=== PATIENT | female | born 1970 | race Caucasian/White ===

== ENCOUNTER 2016-07-30 05:32 | Observation (INO) | payer OTHER ==
[~2016-07-30] VITALS: Ht 167.6 cm; Wt 86.2 kg
[2016-07-30] MEDS ORDERED: CHLORHEXIDINE GLUCONATE 2 % 1 PACK (2 CLOTHS) TOPICAL PRN (06:00)
[2016-07-30] MEDS ORDERED: INSULIN HUMAN REGULAR 1,000 UNITS/10 ML VIAL SQ PRN (06:00)
[2016-07-30] MEDS ORDERED: LACTATED RINGER'S 1000 ML IV PRN (06:00)
[2016-07-30] MEDS ORDERED: SODIUM CHLORID 0.9% 500 ML IV PRN (06:00)
[2016-07-30] MEDS ORDERED: METOPROLOL TARTRATE 25 MG TAB PO PRN (06:00)
[2016-07-30] MEDS ORDERED: POVIDONE IODINE 5% (ANTISEPSIS KIT) 4 APPLICATIONS EACH NARE PRN (06:00)
[2016-07-30] MEDS ORDERED: SODIUM CHLORIDE FLUSH PRN IV FLUSH (06:15)
[2016-07-30] MEDS ORDERED: HEPARIN SODIUM - SQ 10,000 UNITS/ML VIAL SQ SCH (06:15)
[2016-07-30] MEDS ORDERED: ceFAZolin 2 GM PREMIX 50 ML IV SCH (06:15)
[2016-07-30] MEDS ORDERED: GABA300C5 PO (06:16)
[2016-07-30] MEDS ORDERED: TRAZ50TA12 PO (06:16)
[2016-07-30] MEDS ORDERED: SITA1TAB2 PO (06:16)
[2016-07-30] MEDS ORDERED: PANT20TA2 PO (06:16)
[2016-07-30] MEDS ORDERED: METF1000 PO (06:16)
[2016-07-30] MEDS ORDERED: ALDA100T PO (06:16)
[2016-07-30] MEDS ORDERED: LEVO150T7 PO (06:16)
[2016-07-30] MEDS ORDERED: METO50TA PO (06:16)
[2016-07-30] MEDS ORDERED: XANA1TAB2 PO (06:16)
[2016-07-30] MEDS ORDERED: ATOR20TA15 PO (06:16)
[2016-07-30 06:17] VITALS: BP 112/65; PULSE 77; RESP 20; TEMP 98.6; O2SAT 95
[2016-07-30 06:59] LABS: AUTOMATED NEUTROPHIL # 8.5 TH/MM3 (1.8-7.7); BASOPHIL # 0.2 TH/MM3 (0-0.2); BASOPHIL % 1.2 % (0.0-2.0); EOSINOPHIL # 0.4 TH/MM3 (0-0.4); EOSINOPHIL % 2.9 % (0.0-4.0); HEMATOCRIT 39.8 % (35.0-46.0); HEMO FLAGS DIFF FINAL; LYMPH % 25.5 % (9.0-44.0); LYMPHOCYTE # 3.3 TH/MM3 (1.0-4.8); MEAN CELL VOLUME 87.1 FL (80.0-100.0); MEAN CORPUSCULAR HEMOGLOBIN 28.7 PG (27.0-34.0); MEAN CORPUSCULAR HGB CONC 32.9 % (32.0-36.0); MONO % 5.5 % (0.0-8.0); NEUT % 64.9 % (16.0-70.0); PLATELET COUNT 302 TH/MM3 (150-450); RED BLOOD COUNT 4.56 MIL/MM3 (4.00-5.30); RED CELL DISTRIBUTION WIDTH 13.4 % (11.6-17.2); WHITE BLOOD COUNT 13.1 TH/MM3 (4.0-11.0)
[2016-07-30 07:13] LABS: APTT (PATIENT) 29.2 SEC (24.3-30.1); PROTHROMBIN TIME - PATIENT 11.5 SEC (9.8-11.6)
[2016-07-30] MEDS ORDERED: MIDAZOLAM HCL 2 MG/2 ML VIAL ONE (07:13)
[2016-07-30] MEDS ORDERED: SUGAMMADEX SODIUM 200 MG/2 ML VIAL IV PUSH ONE ×2 (07:14)
[2016-07-30] MEDS ORDERED: ACETAMINOPHEN 1000 MG/100 ML VIAL IV ONE (07:14)
[2016-07-30] MEDS ORDERED: fentaNYL CITRATE 250 MCG/5 ML AMP ONE ×2 (07:14→10:41)
[2016-07-30 07:24] LABS: ALT (GPT) 27 U/L (10-53); ANION GAP 9 MEQ/L (5-15); AST (GOT) 17 U/L (15-37); BICARBONATE 26.3 MEQ/L (21.0-32.0); BLOOD UREA NITROGEN 5 MG/DL (7-18); CHLORIDE 105 MEQ/L (98-107); GLOMERULAR FILTRATION RATE 69 ML/MIN (>89); POTASSIUM 3.5 MEQ/L (3.5-5.1); SODIUM (NA) 140 MEQ/L (136-145)
[2016-07-30 07:28] LABS: ALKALINE PHOSPHATASE 86 U/L (45-117); BETA HCG QUANT LESS THAN 1 MIU/ML (0-5); TOTAL BILIRUBIN ADULT 0.3 MG/DL (0.2-1.0)
[2016-07-30] MEDS ORDERED: LIDOCAINE 1%/EPINEPHrine 1:100,000 SOLN 20 ML VIAL INFIL ONE (08:42)
[2016-07-30] MEDS ORDERED: SODIUM CHLORIDE FLUSH BID IV FLUSH SCH (09:00)
[2016-07-30] MEDS ORDERED: METHYLENE BLUE 10 MG/ML VIAL OTHER ONE (09:11)
[2016-07-30] MEDS ORDERED: DO NOT ADM ANY ANTICOAGULANT DRUGS PRN (10:00)
[2016-07-30] MEDS ORDERED: SODIUM CHLORIDE 0.9% FLUSH 10 ML FLUSH IV FLUSH PRN (10:30)
[2016-07-30] MEDS ORDERED: ONDANSETRON HCL 4 MG/2 ML VIAL IVP PRN (10:30)
[2016-07-30] MEDS ORDERED: diphenhydrAMINE HCL 25 MG CAP PO PRN (10:30)
[2016-07-30] MEDS ORDERED: oxyCODONE/ACETAMINOPHEN 5 MG/325 MG TAB PO PRN (10:30)
[2016-07-30] MEDS: D5-1/2 NS + KCL 20 MEQ INJ 1,000 ML IV SCH ×2 (11:24→21:05)
[2016-07-30] MEDS: KETOROLAC TROMETHAMINE 30 MG/ML (IVP) VIAL IVP SCH ×3 (11:41→22:08)
[2016-07-30 12:00] VITALS: BP 151/78; PULSE 83; RESP 20; TEMP 96.5; O2SAT 94
[2016-07-30] MEDS ORDERED: ONDANSETRON HCL 4 MG/2 ML VIAL IV PUSH ONE (12:00)
[2016-07-30] MEDS ORDERED: NORMOSOL R INJ 1,000 ML IV ONE (12:00)
[2016-07-30] MEDS ORDERED: PROPOFOL 200 MG/20 ML AMP IV ONE (12:00)
[2016-07-30] MEDS: oxyCODONE/ACETAMINOPHEN 5 MG/325 MG TAB PO PRN ×2 (12:34→17:20)
[2016-07-30] MEDS ORDERED: GLUCAGON 1 MG/ML VIAL OTHER PRN (12:45)
[2016-07-30] MEDS ORDERED: DEXTROSE 50% IN WATER 50 ML VIAL(D50) IV PUSH PRN (12:45)
[2016-07-30 16:00] VITALS: BP 143/82; PULSE 82; RESP 18; TEMP 96.4; O2SAT 97
[2016-07-30] MEDS: INSULIN NovoLIN REGULAR SUPPLEMENTAL SCALE SQ SCH ×2 (16:00→22:16)
--- NOTE | 2016-07-30 17:05 | PD.ONC.PN ---
Subjective Subjective Remarks post op note pt has no complaints has been OOB to bedside commode pain controlled denies any n/v Objective Data Date Time Temp Pulse Resp B/P Pulse Ox O2 Delivery O2 Flow Rate FiO2 07/30/16 16:00 96.4 82 18 143/82 97 07/30/16 12:00 96.5 83 20 151/78 94 07/30/16 12:00 97.8 88 16 140/74 95 Nasal Cannula 3 07/30/16 11:45 89 16 130/71 95 07/30/16 11:30 88 15 152/70 95 07/30/16 11:15 96 12 172/80 98 07/30/16 11:00 96 12 170/84 96 07/30/16 10:45 90 12 147/63 91 07/30/16 10:30 97.8 98 12 150/70 89 Simple Mask 6 07/30/16 06:17 98.6 77 20 112/65 95 07/30/16 07/30/16 07/30/16 07:00 15:00 23:00 Intake Total 270 ml Output Total 700 ml Balance -700 ml 270 ml Result Diagram: 07/30/1625 07/30/1625 Laboratory Results Laboratory Tests Test 07/30/16 06:25 White Blood Count 13.1 TH/MM3 Red Blood Count 4.56 MIL/MM3 Hemoglobin 13.1 GM/DL Hematocrit 39.8 % Mean Corpuscular Volume 87.1 FL Mean Corpuscular Hemoglobin 28.7 PG Mean Corpuscular Hemoglobin 32.9 % Concent Red Cell Distribution Width 13.4 % Platelet Count 302 TH/MM3 Mean Platelet Volume 8.8 FL Neutrophils (%) (Auto) 64.9 % Lymphocytes (%) (Auto) 25.5 % Monocytes (%) (Auto) 5.5 % Eosinophils (%) (Auto) 2.9 % Basophils (%) (Auto) 1.2 % Neutrophils # (Auto) 8.5 TH/MM3 Lymphocytes # (Auto) 3.3 TH/MM3 Monocytes # (Auto) 0.7 TH/MM3 Eosinophils # (Auto) 0.4 TH/MM3 Basophils # (Auto) 0.2 TH/MM3 CBC Comment DIFF FINAL Differential Comment Prothrombin Time 11.5 SEC Prothromb Time International 1.0 RATIO Ratio Activated Partial 29.2 SEC Thromboplast Time Sodium Level 140 MEQ/L Potassium Level 3.5 MEQ/L Chloride Level 105 MEQ/L Carbon Dioxide Level 26.3 MEQ/L Anion Gap 9 MEQ/L Blood Urea Nitrogen 5 MG/DL Creatinine 0.89 MG/DL Estimat Glomerular Filtration 69 ML/MIN Rate Random Glucose 148 MG/DL Calcium Level 9.1 MG/DL Total Bilirubin 0.3 MG/DL Aspartate Amino Transf 17 U/L (AST/SGOT) Alanine Aminotransferase 27 U/L (ALT/SGPT) Alkaline Phosphatase 86 U/L Total Protein 7.3 GM/DL Albumin 3.4 GM/DL Human Chorionic Gonadotropin, LESS THAN 1 Quant MIU/ML Blood Type O POSITIVE Antibody Screen NEGATIVE Blood Bank Comment Administered Medications Medications (Trade) Dose Ordered Sig/Sharron Route PRN Reason Start Time Stop Time Status Last Admin Dose Admin Potassium Chloride/Dextrose/ Sod Cl (D5-1/2 NS + KCl 20 Meq Inj) 1,000 ml @ 100 mls/hr Q10H IV 07/30/16 10:19 07/30/16 11:24 Ketorolac Tromethamine (Toradol Inj) 30 mg Q6H IVP 07/30/16 12:00 07/31/16 06:01 07/30/16 11:41 Oxycodone/ Acetaminophen (Percocet 5-325 Mg) 2 tab Q4H PRN PO PAIN SCALE 6 TO 10 07/30/16 10:30 07/30/16 12:34 Ondansetron HCl (Zofran Inj) 4 mg Q6H PRN IVP NAUSEA OR VOMITING 07/30/16 10:30 07/30/16 12:35 Objective Remarks GENERAL: Well-nourished, well-developed patient. SKIN: Warm and dry. HEAD: Normocephalic. EYES: No scleral icterus. No injection or drainage. CARDIOVASCULAR: Regular rate and rhythm without murmurs. RESPIRATORY: Breath sounds equal bilaterally. No accessory muscle use. GASTROINTESTINAL: Abdomen soft, SS are c/d/i EXTREMITIES: No cyanosis, or edema. MUSCULOSKELETAL: Adequate muscle tone. NEUROLOGICAL: No obvious focal deficit. Awake, alert, and oriented x3. PSYCHIATRIC: Appropriate mood and affect; insight and judgment normal. Assessment/Plan Problem List: (1) Post-operative state Status: Acute Plan: pt RA lap hyst with BSO and resection of pelvic mass post op orders in chart OOB to chair ADAT IS at bedside [facility] D/C in the morning and anticipate discharge in next 24 hours Asia Arzola Jul 30, 2016 17:05
[2016-07-30] MEDS: SPIRONOLACTONE 100 MG TAB PO SCH (18:00)
[2016-07-30 20:20] VITALS: BP 105/62; PULSE 77; RESP 16; TEMP 97.5; O2SAT 95
[2016-07-30] MEDS ORDERED: traZODone HCL 100 MG TAB PO SCH (21:00)
[2016-07-30] MEDS ORDERED: ATORVASTATIN 20 MG TAB PO SCH (21:00)
[2016-07-30] MEDS: SODIUM CHLORIDE 0.9% FLUSH 10 ML FLUSH IV FLUSH SCH (21:00)
[2016-07-30] MEDS: GABAPENTIN 300 MG CAP PO SCH (21:04)
[2016-07-30] MEDS: ALPRAZolam 1 MG TAB PO SCH (21:09)
[2016-07-31] VITALS: BP 96/54; PULSE 75; RESP 16; TEMP 97.8; O2SAT 94
[2016-07-31] MEDS: oxyCODONE/ACETAMINOPHEN 5 MG/325 MG TAB PO PRN ×2 (03:41→09:25)
[2016-07-31 04:00] VITALS: BP 116/64; PULSE 66; RESP 16; TEMP 96.9; O2SAT 95
[2016-07-31] MEDS ORDERED: LEVOTHYROXINE SODIUM 150 MCG TAB PO SCH (06:00)
[2016-07-31] MEDS: KETOROLAC TROMETHAMINE 30 MG/ML (IVP) VIAL IVP SCH (06:05)
[2016-07-31] MEDS: D5-1/2 NS + KCL 20 MEQ INJ 1,000 ML IV SCH (06:05)
[2016-07-31] MEDS: INSULIN NovoLIN REGULAR SUPPLEMENTAL SCALE SQ SCH ×2 (06:39→12:12)
[2016-07-31 07:11] LABS: AUTOMATED NEUTROPHIL # 16.7 TH/MM3 (1.8-7.7); BASOPHIL # 0.1 TH/MM3 (0-0.2); BASOPHIL % 0.3 % (0.0-2.0); EOSINOPHIL # 0.1 TH/MM3 (0-0.4); EOSINOPHIL % 0.4 % (0.0-4.0); HEMATOCRIT 40.8 % (35.0-46.0); HEMO FLAGS DIFF FINAL; LYMPH % 16.8 % (9.0-44.0); LYMPHOCYTE # 3.6 TH/MM3 (1.0-4.8); MEAN CELL VOLUME 87.9 FL (80.0-100.0); MEAN CORPUSCULAR HEMOGLOBIN 28.3 PG (27.0-34.0); MEAN CORPUSCULAR HGB CONC 32.2 % (32.0-36.0); MONO % 4.5 % (0.0-8.0); PLATELET COUNT 310 TH/MM3 (150-450); RED BLOOD COUNT 4.64 MIL/MM3 (4.00-5.30); RED CELL DISTRIBUTION WIDTH 13.2 % (11.6-17.2); WHITE BLOOD COUNT 21.4 TH/MM3 (4.0-11.0)
[2016-07-31] MEDS ORDERED: ULTR50TA5 PO (07:40)
[2016-07-31] MEDS ORDERED: ESTR.9 PO (07:42)
[2016-07-31 07:44] LABS: BICARBONATE 28.8 MEQ/L (21.0-32.0); POTASSIUM 4.3 MEQ/L (3.5-5.1)
--- NOTE | 2016-07-31 07:47 | PD.ONC.PN ---
Subjective Subjective Remarks POD #1 pt is resting in bed states that her pain in controlled Carey has been removed and she has not been up to urinate will advance to regular diet Objective Data Date Time Temp Pulse Resp B/P Pulse Ox O2 Delivery O2 Flow Rate FiO2 07/31/16 04:00 96.9 66 16 116/64 95 07/31/16 00:00 97.8 75 16 96/54 94 07/30/16 20:20 97.5 77 16 105/62 95 07/30/16 16:00 96.4 82 18 143/82 97 07/30/16 12:00 96.5 83 20 151/78 94 07/30/16 12:00 97.8 88 16 140/74 95 Nasal Cannula 3 07/30/16 11:45 89 16 130/71 95 07/30/16 11:30 88 15 152/70 95 07/30/16 11:15 96 12 172/80 98 07/30/16 11:00 96 12 170/84 96 07/30/16 10:45 90 12 147/63 91 07/30/16 10:30 97.8 98 12 150/70 89 Simple Mask 6 07/31/16 07/31/16 07/31/16 07:00 15:00 23:00 Intake Total 1200 ml Balance 1200 ml Result Diagram: 07/31/16 0645 07/30/16 0625 Laboratory Results Laboratory Tests Test 07/31/16 06:45 White Blood Count 21.4 TH/MM3 Red Blood Count 4.64 MIL/MM3 Hemoglobin 13.1 GM/DL Hematocrit 40.8 % Mean Corpuscular Volume 87.9 FL Mean Corpuscular Hemoglobin 28.3 PG Mean Corpuscular Hemoglobin 32.2 % Concent Red Cell Distribution Width 13.2 % Platelet Count 310 TH/MM3 Mean Platelet Volume 8.3 FL Neutrophils (%) (Auto) 78.0 % Lymphocytes (%) (Auto) 16.8 % Monocytes (%) (Auto) 4.5 % Eosinophils (%) (Auto) 0.4 % Basophils (%) (Auto) 0.3 % Neutrophils # (Auto) 16.7 TH/MM3 Lymphocytes # (Auto) 3.6 TH/MM3 Monocytes # (Auto) 1.0 TH/MM3 Eosinophils # (Auto) 0.1 TH/MM3 Basophils # (Auto) 0.1 TH/MM3 CBC Comment DIFF FINAL Differential Comment Administered Medications Medications (Trade) Dose Ordered Sig/Sharron Route PRN Reason Start Time Stop Time Status Last Admin Dose Admin Alprazolam (Xanax) 1 mg BID PO 07/30/16 21:00 07/30/16 21:09 Atorvastatin Calcium (Lipitor) 20 mg HS PO 07/30/16 21:00 07/30/16 21:04 Gabapentin (Neurontin) 300 mg BID PO 07/30/16 21:00 07/30/16 21:04 Levothyroxine Sodium (Synthroid) 150 mcg DAILY@0600 PO 07/31/16 06:00 07/31/16 06:05 Trazodone HCl 100 mg 100 mg HS PO 07/30/16 21:00 07/30/16 21:05 Potassium Chloride/Dextrose/ Sod Cl (D5-1/2 NS + KCl 20 Meq Inj) 1,000 ml @ 100 mls/hr Q10H IV 07/30/16 10:19 07/31/16 06:05 Oxycodone/ Acetaminophen (Percocet 5-325 Mg) 1 tab Q4H PRN PO PAIN SCALE 1 TO 5 07/30/16 10:30 07/30/16 21:04 Oxycodone/ Acetaminophen (Percocet 5-325 Mg) 2 tab Q4H PRN PO PAIN SCALE 6 TO 10 07/30/16 10:30 07/31/16 03:41 Ondansetron HCl (Zofran Inj) 4 mg Q6H PRN IVP NAUSEA OR VOMITING 07/30/16 10:30 07/30/16 12:35 Objective Remarks GENERAL: Well-nourished, well-developed patient. SKIN: Warm and dry. HEAD: Normocephalic. EYES: No scleral icterus. No injection or drainage. CARDIOVASCULAR: Regular rate and rhythm without murmurs. RESPIRATORY: Breath sounds equal bilaterally. No accessory muscle use. GASTROINTESTINAL: Abdomen soft, SS are c/d/i EXTREMITIES: No cyanosis, or edema. MUSCULOSKELETAL: Adequate muscle tone. NEUROLOGICAL: No obvious focal deficit. Awake, alert, and oriented x3. PSYCHIATRIC: Appropriate mood and affect; insight and judgment normal. Assessment/Plan Problem List: (1) Post-operative state Status: Acute Plan: POD #1 RA lap hyst with BSO and resection of pelvic mass OK to D/C home today after first void will advance to regular diet will call in script for Premarin 0.9% 1 tab daily Ultram 50mg 1 tab PO q 4 hours PRN pain educated pt about restrictions OK to resume home meds Pt will follow up in customer service operator/onc clinic in 2-3 weeks for final pathology Attending Statement Dr. Mc is in agreement with this plan of care. Asia Arzola Jul 31, 2016 07:47
[2016-07-31 08:11] VITALS: BP 105/65; PULSE 79; RESP 20; TEMP 98; O2SAT 92
[2016-07-31] MEDS ORDERED: METOPROLOL TARTRATE 50 MG TAB PO SCH (09:00)
[2016-07-31] MEDS ORDERED: PANTOPRAZOLE SOD 20 MG DELAYED RELEASE TAB PO SCH (09:00)
[2016-07-31] MEDS: GABAPENTIN 300 MG CAP PO SCH (09:07)
[2016-07-31] MEDS: ALPRAZolam 1 MG TAB PO SCH (09:07)
[2016-07-31] MEDS: SPIRONOLACTONE 100 MG TAB PO SCH (09:07)
[2016-07-31] MEDS: SODIUM CHLORIDE 0.9% FLUSH 10 ML FLUSH IV FLUSH SCH (09:08)
[2016-07-31 12:43] VITALS: BP 108/63; PULSE 62; RESP 20; TEMP 96.9; O2SAT 97
[2016-07-31 13:30] VITALS: BP 109/71; PULSE 82; RESP 16; TEMP 98.5; O2SAT 100
--- NOTE | 2016-08-01 07:45 | MP ---
cc: GEORGIE ZULETA KELLY L. MD CARHINE-LAMBERT, PIERRE DATE OF SURGERY 07/30/2016 PREOPERATIVE DIAGNOSIS Bilateral adnexal masses. POSTOPERATIVE DIAGNOSIS Bilateral ovarian fibromas. PROCEDURE Robotic-assisted laparoscopic hysterectomy, bilateral salpingo-oophorectomy SURGEON Swetha Mc MD FRUIT AND VEGETABLE INSPECTOR [place] senior sales assistant ANESTHESIA General endotracheal anesthesia ESTIMATED BLOOD LOSS 400 cc IV FLUIDS 2000 cc URINE OUTPUT 300 cc HISTORY This is a 45-year-old female found on exam and imaging to have complex bilateral ovarian masses approximately 4 cm in size. She has also had some pelvic pain, heavy irregular bleeding and concern regarding the possibility of malignancy. She has been counseled. She is in favor of definitive surgery. She is seen again in the preop holding area where the surgery was discussed. The reproductive and menopausal ramifications are again reviewed. She expresses good understanding and is certain that she wishes to move forward with a complete hysterectomy, bilateral salpingo-oophorectomy irrespective of the pathology. She understands additional staging may the warranted. FINDINGS Uterine cavity sounded to approximately 9 cm. Symmetrically prominent was what appeared to be small leiomyomas. The ovaries were symmetrically enlarged bilaterally, smooth light, but solid in appearance. There is no adenopathy. No peritoneal implants. The uterus and adnexa once removed showed what appeared to be ovarian fibromas, leiomyomas. No evidence of malignancy. PROCEDURE The patient was taken to the operating room and placed in the dorsal lithotomy position after general endotracheal anesthesia was administered. A time-out was undertaken. The patient was identified by sight recognition and hospital ID bracelet and the proposed procedure was reviewed and confirmed. She was carefully positioned in padded Osmany stirrups. Arms were padded and secured to the sides. She was further secured to the operating table with egg crate padding and tape in across chest over the shoulder fashion. All sites noted be properly aligned with no malalignments or pressure points. She was prepped in sterile fashion, draped below the waist. Cervix was grasped, uterine cavity sounded, cervix dilated. A large V-Care manipulator inserted and secured in the usual fashion. Carey catheter placed. She was returned to low lithotomy position, a change of sterile gloves was undertaken and we completed draping in anticipation of laparoscopy. After confirming that an orogastric tube was in the stomach on suction, with manual elevation of the abdominal wall and direct laparoscopic visualization, a 5 mm cannula was placed in the left upper quadrant. Carbon dioxide gas was insufflated. A 12 mm cannula placed in the midline above the umbilicus. An 8 mm cannula was placed in the right upper abdomen and left lateral abdomen. The original 5-mm cannula was exchanged for an 8-mm cannula. She was placed in steep Trendelenburg position. Peritoneal washings were obtained for cytology. The anatomy was reviewed with findings as described above. Small bowel was folded back on its mesenteric root and three Ray-Eldon sponges were placed around the root of the small bowel mesentery. The robotic system was brought into the operative field and attached in the usual fashion. Monopolar scissors, fenestrated bipolar forceps and Prograsp manipulators were placed in arms number 1, 2, and 3 respectively and I took my place at the surgeon's console. The right round ligament was isolated, cauterized and transected. The anterior and posterior leafs of the broad ligament were opened. The right ureter was identified. The right infundibulopelvic ligament was isolated to the level of the pelvic brim where it was cauterized and transected. The posterior peritoneum dissected off the right side of the uterus and cervix. The right vesicouterine peritoneum dissected off the right side. The right uterine vessels were skeletonized, cauterized and transected as were the Cardinal, paracervical and uterosacral ligaments. Attention was directed toward the left side where the left round ligament was isolated, cauterized and transected. The anterior and posterior leafs of the broad ligament were opened. The left ureter was identified. The left infundibulopelvic ligament was isolated to the level of the pelvic brim where it was cauterized and transected. Posterior peritoneum opened along the left side of the uterus and cervix. The left vesicouterine peritoneum was dissected off the lower uterine segment and cervix. The left uterine vessels were skeletonized, cauterized and transected, as were the Cardinal, paracervical and uterosacral ligaments. Colpotomy was performed the cervix from the upper vagina. The specimen was withdrawn transvaginally which included uterus, cervix, tubes and ovaries and the Pneumooccluder balloon was placed in the vagina to maintain pneumoperitoneum. Instruments one and three exchanged for needle drivers as a 0 Vicryl suture was introduced. The vaginal cuff was closed starting at the left corner full-thickness closure including the edge of the uterosacral ligament, and posterior peritoneum. The suture was tied via instrument tie running continuous closure was continued across the vaginal cuff as countertraction was held until the suture was similarly secured to the contralateral corner where it was tied and the needle was cut and removed. It should be noted that each of the three Ray-Eldon sponges that had placed in the peritoneal cavity were removed transvaginally prior to cuff closure. Each were inspected and noted to be removed in their entirety. Given upon benign appearance of these findings, it was anticipated that no further dissection would be required. The pelvis was thoroughly irrigated. The integrity of the bladder was confirmed by filling the bladder with saline dyed with methylene blue. The bladder distended nicely under pressure. There were no areas of thinning in the bladder. No extravasation of dye. The ureters showed good peristalsis bilaterally and the bladder was drained. There were no remaining foreign objects in the peritoneal cavity. Preliminary counts were correct. Pathology came back showing benign findings and it was felt that all reasonable surgical objectives had been completed. Accordingly, the robotic instruments were removed and the robotic system was disengaged from the operative field. I reentered the bedside under sterile condition. The 12-mm fascial defect was closed with 0 Vicryl sutures using a needle pass apparatus in an interrupted fashion and they were tied securely rendering the fascia completely airtight and hemostatic. The remaining cannulas sites were withdrawn. Carbon dioxide gas was removed. 3-0 Vicryl subcutaneous, 3-0 Vicryl subcuticular, and Steri-Strips used to close these incisions. She was returned to dorsal lithotomy position. Pelvic exam confirmed the vaginal cuff was well supported and hemostatic and there was no remaining foreign objects in the vagina. No lacerations. Final counts were correct. She was returned to dorsal supine position and pending reversal of anesthesia when I left operating room to precede her to the Post Anesthesia Care Unit. MD CLAUDINE Aaron/MALA /4:39 AM /7:20 AM
== END 2016-07-31 11:20 | disposition home or self-care (01) ==
LOC: HSDC 05:32 → HSDI 10:22 → HOCB 12:16
PROVIDERS: ADMIT Obstetrics & Gynecology Gynecologic Oncology; ATTEND Obstetrics & Gynecology Gynecologic Oncology
DX: D25.2 Subserosal leiomyoma of uterus (principal); N72 Inflammatory disease of cervix uteri; D27.1 Benign neoplasm of left ovary; D27.0 Benign neoplasm of right ovary; N83.8 Other noninflammatory disorders of ovary, fallopian tube and broad ligament; D64.9 Anemia, unspecified; F32.9 Major depressive disorder, single episode, unspecified; E11.9 Type 2 diabetes mellitus without complications; E78.5 Hyperlipidemia, unspecified; F17.200 Nicotine dependence, unspecified, uncomplicated; Z79.84 Long term (current) use of oral hypoglycemic drugs; R10.2 Pelvic and perineal pain
CPT/HCPCS: 00840; 58571; 80048; 80053; 84702; 85025; 85610; 85730; 86850; 86900; 86901; 88112; 88307; 88331; 94150; 96361; 96372; 96374; 96375; 96376; G0378; J0131; J1885; J2250; J2405; J3010; J3480; J7120